=== PATIENT | male | born 1995 | race Caucasian/White ===

== ENCOUNTER 2020-08-19 15:24 | Emergency (ER) | payer BC ==
[~2020-08-19] VITALS: Ht 177.8 cm; Wt 86.2 kg
== END 2020-08-19 16:53 | disposition home or self-care (01) ==
LOC: ER 15:24
DX: S01.81XA Laceration without foreign body of other part of head, initial encounter (principal); Z23 Encounter for immunization; W22.8XXA Striking against or struck by other objects, initial encounter
CPT/HCPCS: 12011; 90471; 90714; 99282-25